=== PATIENT | male | born 1955 | race Caucasian/White ===

== ENCOUNTER → 2017-02-14 | Outpatient (CLI) | payer BC ==
--- NOTE | 2017-02-15 10:48 | RADONC ---
RADIATION ONCOLOGY CONSULTATION NOTE DATE: 02/14/2017 CHART NUMBER: [id number] DIAGNOSIS: Basal cell carcinoma. STAGE: I, T1N0M0. ECOG PERFORMANCE STATUS: 0 CONSULTATION NOTE: Mr. Pollock is a very pleasant 61-year-old white male with the diagnosis of a stage I, T1N0M0, basal cell carcinoma involving his left jaw who is presenting to us today for consideration of postoperative radiation therapy in attempt to achieve local control. HISTORY OF PRESENT ILLNESS: The patient has a long history of having a small lump present on the skin of his left lower jaw. He reported that when he would shaved he would cut this open. He was seen by Dr. Andres Sequeira who excised this area on 01/23/2017. Pathology revealed a basal cell carcinoma with extension to one peripheral margin. He has done well since surgery and is now presenting for consideration of postoperative radiation therapy. PAST MEDICAL HISTORY: The patient's past medical history is positive for arthritis, hepatitis, an OH in 2013, as well as a DVT. ALLERGIES: The patient is allergic to PENICILLIN. SOCIAL HISTORY: The patient smokes one pack of cigarettes per day for the last 45 years. He drinks alcohol socially. FAMILY HISTORY: The patient's family history is positive for a mother with throat cancer. REVIEW OF SYSTEMS: The patient's review of systems is noncontributory. He nausea, vomiting, fevers, chills, night sweats, diplopia, headaches, anxiety or depression, anorexia, weight loss, visual disturbances, chest pain, urinary or bowel difficulties, bone pain, or neurological problems. PHYSICAL EXAMINATION: The patient is a well-developed, well-nourished white male in no acute distress. HEENT: Exam is normocephalic, atraumatic. Extraocular movements are intact. The patient's skin over his jaws is in excellent condition with a well-healed surgical scar present. There is no nodularity, ulceration, or evidence of residual disease. There is no palpable preauricular, cervical, supraclavicular, infraclavicular, or axillary lymphadenopathy present. His lungs are clear to auscultation and percussion. ASSESSMENT: Mr. Pollock is seeing us for consideration of postoperative radiation therapy for his basal cell carcinoma. Clearly, the patient is a candidate for this treatment, and I have so informed him. I have discussed with the patient in detail the potential benefits as well as possible acute and chronic sequelae of external beam radiation therapy. We discussed logistics of treatment planning, simulation, and subsequent fractionated daily radiation treatments. In addition, I discussed with the patient the possibility of further excision. In light of the fact that is right over his face, he does not wish to undergo further scarring and has chosen radiation. Thank you for allowing us to participate in the care of this very pleasant gentleman. If I could be of any further assistance or provide you with any information, please feel free to contact me at anytime. cc: Andres Sequeira MD
== END ==
LOC: M ONCR 14:02
PROVIDERS: ATTEND Radiology Radiation Oncology
DX: C44.309 Unspecified malignant neoplasm of skin of other parts of face (principal)

== ENCOUNTER 2017-02-16 09:55 | Outpatient (RCR) | payer BC ==
--- NOTE | 2017-02-16 09:58 | RADONC ---
RADIATION ONCOLOGY SIMULATION NOTE DATE: 02/16/2017 CHART NUMBER: [id number] Mr. Pollock was taken to the linear accelerator today for a clinical setup of his left jaw electron field. Setup was accomplished without difficulty or discomfort. Radiation treatment planning is underway and radiation treatments will begin subsequently. The patient was immobilized. The immobilization device will be used throughout the course of treatment. I was physically present throughout the course of CT simulation. 1/2 cm of tissue equivalent bolus will be placed over the field and 61 MeV electron beam will be utilized.
--- NOTE | 2017-03-14 07:49 | RADONC ---
RADIATION ONCOLOGY PROGRESS NOTE DATE: 03/13/2017 CHART NUMBER: Mr. Pollock underwent his first fraction of radiation today to the skin of his jaw. Radiation was tolerated without difficulty or discomfort. The patient's review of systems is noncontributory. He denies nausea, vomiting, fevers, chills, night sweats, diplopia, headaches, anxiety or depression, anorexia, weight loss, visual disturbances, chest pain, urinary or bowel difficulties, bone pain, or neurological problems. PHYSICAL EXAMINATION: The patient's skin clearly showed no evidence of radiation change as he underwent his first fraction today. The remainder of his physical exam remained unchanged as well. Mr. Pollock tolerated his first fraction without difficulty and radiation will continue as scheduled.
== END 2017-03-03 ==
LOC: M ONCR 09:55
PROVIDERS: ATTEND Radiology Radiation Oncology
DX: C44.309 Unspecified malignant neoplasm of skin of other parts of face (principal)

== ENCOUNTER 2017-03-13 13:00 | Outpatient (RCR) | payer BC ==
--- NOTE | 2017-03-21 06:36 | RADONC ---
RADIATION ONCOLOGY PROGRESS NOTE DATE: 03/20/2017 CHART NUMBER: [id number] Mr. Pollock is presently at a dose of 1250 cGy to his left jaw and is tolerating his treatments quite well at this point with no complaints related to his radiation therapy. He is having no skin discomfort or other problems. REVIEW OF SYSTEMS: The patient's review of systems is noncontributory. He denies nausea, vomiting, fevers, chills, night sweats, diplopia, headaches, anxiety or depression, anorexia, weight loss, visual disturbances, chest pain, urinary or bowel difficulties, bone pain or neurological problems. PHYSICAL EXAMINATION: The patient's skin is in excellent condition with no evidence of radiation change present. There is no moist or dry desquamation. The remainder of his physical exam remains unchanged. Mr. Pollock is tolerating his treatments quite well and radiation will continue as scheduled.
--- NOTE | 2017-03-28 09:48 | RADONC ---
RADIATION ONCOLOGY PROGRESS NOTE DATE: 03/27/2017 CHART NUMBER: [id number] Mr. Pollock is presently at a dose of 2250 cGy to his left jaw and is tolerating treatments quite well at this point with no complaints related to his radiation therapy. He is having no skin pain or other problems. The patient's review of systems is noncontributory. He denies nausea, vomiting, fevers, chills, night sweats, diplopia, headaches, anxiety or depression, anorexia, weight loss, visual disturbances, chest pain, urinary or bowel difficulties, bone pain, or neurological problems. PHYSICAL EXAMINATION: The patient's skin is in excellent condition with no evidence of moist or dry desquamation. There is just some slight tanning present. The remainder of his physical exam remains unchanged. Mr. Pollock is tolerating treatments quite well and radiation will continue as scheduled.
--- NOTE | 2017-04-03 10:25 | RADONC ---
RADIATION ONCOLOGY PROGRESS NOTE: DATE: 04/03/2017 CHART NUMBER: [id number] Mr. Pollock is presently at a dose of 3500 cGy to his left jaw and is tolerating treatments quite well at this point with no complaints related to his radiation therapy. He is having no significant skin pain or other problems. REVIEW OF SYSTEMS: The patient's review of systems is noncontributory. Denies nausea, vomiting, fevers, chills, night sweats, diplopia, headaches, anxiety or depression, anorexia, weight loss, visual disturbances, chest pain, urinary or bowel difficulties, bone pain, or neurological problems. PHYSICAL EXAMINATION: The patient's skin is in excellent condition with no evidence of moist or dry desquamation. There is some radiation tanning present. The remainder of his physical exam remains unchanged. Mr. Pollock is tolerating treatments quite well and radiation will continue as scheduled.
== END 2017-04-03 ==
LOC: M ONCR 13:00
PROVIDERS: ATTEND Radiology Radiation Oncology
DX: C44.309 Unspecified malignant neoplasm of skin of other parts of face (principal)

== ENCOUNTER 2017-04-04 10:11 | Outpatient (RCR) | payer BC ==
--- NOTE | 2017-04-11 09:14 | RADONC ---
RADIATION ONCOLOGY PROGRESS NOTE DATE: 04/10/2017 CHART NUMBER: [id number] Mr. Pollock is presently at a dose of 4750 cGy to his left jaw and is tolerating treatments quite well at this point with no complaints related to his radiation therapy. He is having no skin discomfort or other problems. REVIEW OF SYSTEMS: The patient's review of systems is noncontributory. He denies nausea, vomiting, fevers, chills, night sweats, diplopia, headaches, anxiety or depression, anorexia, weight loss, visual disturbances, chest pain, urinary or bowel difficulties, bone pain or neurological problems. PHYSICAL EXAMINATION: The skin in the irradiated field shows some erythema and tanning present but overall is in excellent condition with no evidence of moist or dry desquamation. The remainder of his physical exam remains unchanged. Mr. Pollock is tolerating his treatments quite well and radiation is scheduled for completion tomorrow.
--- NOTE | 2017-04-12 08:44 | RADONC ---
RADIATION ONCOLOGY TREATMENT SUMMARY: DATE: 04/12/2017 CHART NUMBER: [id number] DIAGNOSIS: Basal cell carcinoma. STAGE: I, T1N0M0 ECOG PERFORMANCE STATUS: 0 Mr. Pollock is a very pleasant 61-year-old white male with the diagnosis of a stage I, T1N0M0 basal cell carcinoma involving his left jaw who presented to us for consideration of postoperative radiation therapy in attempt to achieve local control and cure. We treated the patient to the skin of his jaw for a total dose of 5000 cGy delivered in 20 fractions of 250 cGy each over 29 elapsed days from 03/13/2017 through 04/11/2017. The patient's left jaw was treated on a linear accelerator utilizing an 6 MV electron beam via an en face technique. The electron beam was prescribed to the 90% isodose line. 1/2 cm of tissue equivalent bolus was placed over the treatment field. Mr. Pollock tolerated his treatments quite well with no difficulties related to his radiation therapy. He was able to complete therapy as prescribed without interruption. I have scheduled the patient to see me again in 1 month for further followup. He will also continue to be followed by his other physicians as well. Thank you for allowing us to participate in the care of this very pleasant gentleman. If I could be of any further assistance or provide you with any information, please feel free to contact me anytime, As always with warm regards,
== END 2017-05-04 ==
LOC: M ONCR 10:11
PROVIDERS: ATTEND Radiology Radiation Oncology
DX: C44.309 Unspecified malignant neoplasm of skin of other parts of face (principal)

== ENCOUNTER → 2019-04-25 | Outpatient (CLI) | payer BC ==
[2019-04-25 07:51] LABS: HEMATOCRIT 48.7 % (42.0-52.0); MEAN CORPUSCULAR HEMOGLOBIN 33.9 pg (27.0-33.0); MEAN CORPUSCULAR HGB CONC 34.9 g/dl (32.0-36.5); PLATELET COUNT, AUTOMATED 252 10^3/uL (150-450); RED BLOOD COUNT 5.02 10^6/uL (4.30-6.10); WHITE BLOOD COUNT 10.7 10^3/uL (4.0-10.0)
[2019-04-25 08:27] LABS: ALBUMIN 3.6 GM/DL (3.2-5.2); ALT/SGPT 22 U/L (12-78); BILIRUBIN,TOTAL 0.7 MG/DL (0.2-1.0); BLOOD UREA NITROGEN 14 MG/DL (7-18); CALCIUM LEVEL 9.2 MG/DL (8.8-10.2); CARBON DIOXIDE LEVEL 27 MEQ/L (21-32); CHLORIDE LEVEL 108 MEQ/L (98-107); CHOLESTEROL LEVEL 156 MG/DL (<200); CHOLESTEROL RISK RATIO 3.391 (<5); CREATININE FOR GFR 1.08 MG/DL (0.70-1.30); GLOMERULAR FILTRATION RATE > 60.0 (>49); GLUCOSE, FASTING 90 MG/DL (70-100); HDL CHOLESTEROL 46 MG/DL (>40); LDL CHOLESTEROL 76 MG/DL (<100); NON-HDL-C 110 MG/DL; PROSTATIC SPECIFIC AG MONITOR 1.53 NG/ML (< 4.00); SODIUM LEVEL 142 MEQ/L (136-145); TOTAL PROTEIN 6.7 GM/DL (6.4-8.2); TRIGLYCERIDES LEVEL 169 MG/DL (<150)
[2019-04-25 08:56] LABS: HEMOGLOBIN A1c 5.9 %
--- NOTE | 2019-04-25 10:12 | REP ---
TWO-VIEW CHEST: REASON: History of COPD and hypertension. COMPARISON: Multiple, latest 12/31/2015. FINDINGS: The superior mediastinal structures are midline. The cardiac silhouette is unremarkable in size, shape, and position. The diaphragmatic surfaces of the lungs are regular, and the costophrenic angles are clear. The pulmonary barrientos are clear. The imaged osseous structures are intact. IMPRESSION: There is no acute cardiopulmonary disease. Electronically Signed by Elkin Grigsby DO 04/25/2019 10:55 A
[2019-04-25 12:19] LABS: TESTOSTERONE 197 NG/DL (241-827)
--- NOTE | 2019-04-26 09:12 | ECGEPIP ---
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
== END ==
LOC: M LAB 07:14
PROVIDERS: ATTEND Family Medicine
DX: I10 Essential (primary) hypertension (principal); J44.9 Chronic obstructive pulmonary disease, unspecified; E03.9 Hypothyroidism, unspecified

== ENCOUNTER → 2020-10-30 | Outpatient (CLI) | payer BC ==
[2020-10-30 08:36] LABS: HEMATOCRIT 48.9 % (42.0-52.0); HEMOGLOBIN 16.5 g/dl (13.5-17.5); MEAN CORPUSCULAR HEMOGLOBIN 33.7 pg (27.0-33.0); MEAN CORPUSCULAR HGB CONC 33.7 g/dl (32.0-36.5); MEAN CORPUSCULAR VOLUME 99.8 fl (80.0-96.0); PLATELET COUNT, AUTOMATED 261 10^3/uL (150-450); WHITE BLOOD COUNT 9.2 10^3/uL (4.0-10.0)
--- NOTE | 2020-10-30 08:54 | REP ---
INDICATION: HYPERTENSION/ PT HAS LABS, RAD, THEN EKG. COMPARISON: 04/25/2019, 12/31/2015 TECHNIQUE: Two views FINDINGS: The lungs are well inflated. There is a new zone of linear scar or atelectasis peripherally in the right mid lung field. There is no pleural effusion, lateral or apical pleural thickening, pulmonary nodule or parenchymal mass identified. There is no acute infiltrate. The heart is not enlarged there is no pericardial thickening or effusion. Hilar symmetric and normal. The aorta is normal for age. The airway is intact. There is no widening of the mediastinum. Bony thorax shows no compression deformity or focal lesion. There is no free air under the diaphragm. IMPRESSION: 1. Some minor linear scar or atelectasis periphery of the right mid lung zone, new from previous study. No acute infiltrate, effusion, pleural plaque, pulmonary nodule, cardiomegaly or edema. <Electronically signed by Don Rodríguez > 10/30/20 0818
[2020-10-30 09:17] LABS: ALBUMIN 3.6 GM/DL (3.2-5.2); ALT/SGPT 37 U/L (12-78); BILIRUBIN,TOTAL 0.6 MG/DL (0.2-1.0); BLOOD UREA NITROGEN 14 MG/DL (7-18); CARBON DIOXIDE LEVEL 29 MEQ/L (21-32); CHLORIDE LEVEL 106 MEQ/L (98-107); CHOLESTEROL LEVEL 179 MG/DL (<200); CHOLESTEROL RISK RATIO 3.808 (<5); GLOMERULAR FILTRATION RATE > 60.0 (>49); GLUCOSE, FASTING 87 MG/DL (70-100); HDL CHOLESTEROL 47 MG/DL (>40); LDL CHOLESTEROL 94 MG/DL (<100); NON-HDL-C 132 MG/DL; POTASSIUM SERUM 4.4 MEQ/L (3.5-5.1); PROSTATIC SPECIFIC AG MONITOR 2.06 NG/ML (< 4.00); SODIUM LEVEL 139 MEQ/L (136-145); TOTAL PROTEIN 6.7 GM/DL (6.4-8.2); TRIGLYCERIDES LEVEL 192 MG/DL (<150)
--- NOTE | 2020-10-31 08:50 | ECGEPIP ---
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
== END ==
LOC: M LAB 07:24
PROVIDERS: ATTEND Family Medicine
DX: R00.1 Bradycardia, unspecified (principal); I10 Essential (primary) hypertension; R53.83 Other fatigue; J44.9 Chronic obstructive pulmonary disease, unspecified

== ENCOUNTER → 2021-08-10 | Outpatient (CLI) | payer MEDICARE, BC ==
[2021-08-10 08:32] LABS: HEMATOCRIT 48.4 % (42.0-52.0); HEMOGLOBIN 16.8 g/dl (13.5-17.5); MEAN CORPUSCULAR HGB CONC 34.7 g/dl (32.0-36.5); MEAN CORPUSCULAR VOLUME 100.8 fl (80.0-96.0); PLATELET COUNT, AUTOMATED 257 10^3/uL (150-450); WHITE BLOOD COUNT 10.4 10^3/uL (4.0-10.0)
[2021-08-10 09:06] LABS: ALBUMIN 3.4 GM/DL (3.2-5.2); ALT/SGPT 23 U/L (12-78); BILIRUBIN,TOTAL 0.6 MG/DL (0.2-1.0); BLOOD UREA NITROGEN 13 MG/DL (7-18); CALCIUM LEVEL 9.3 MG/DL (8.8-10.2); CARBON DIOXIDE LEVEL 28 MEQ/L (21-32); CHLORIDE LEVEL 107 MEQ/L (98-107); CHOLESTEROL LEVEL 198 MG/DL (<200); CREATININE FOR GFR 1.09 MG/DL (0.70-1.30); GLOMERULAR FILTRATION RATE > 60.0 (>49); GLUCOSE, FASTING 91 MG/DL (70-100); HDL CHOLESTEROL 49 MG/DL (>40); HEMOGLOBIN A1c 5.1 %; LDL CHOLESTEROL 103 MG/DL (<100); NON-HDL-C 149 MG/DL; POTASSIUM SERUM 4.4 MEQ/L (3.5-5.1); PROSTATIC SPECIFIC AG MONITOR 2.46 NG/ML (< 4.00); SODIUM LEVEL 139 MEQ/L (136-145); TOTAL PROTEIN 7.2 GM/DL (6.4-8.2); TRIGLYCERIDES LEVEL 228 MG/DL (<150)
--- NOTE | 2021-08-10 09:46 | REP ---
INDICATION: COPD XR 1ST EKG 2ND LABS 3RD COMPARISON: 10/30/2020. TECHNIQUE: PA/Lateral FINDINGS: Lungs: Clear, no infiltrate. There are mild scattered fibrotic changes. Heart: Normal in size. Mediastinum: Mediastinal silhouette unremarkable. Pleural angles: Unremarkable.. Bones and soft tissues: There are mild degenerative changes of the spine without compression deformity. IMPRESSION: No acute pulmonary disease. <Electronically signed by Micah Kerr > 08/10/21 0989
[2021-08-10 10:06] LABS: TESTOSTERONE 302 NG/DL (241-827)
--- NOTE | 2021-08-10 18:24 | ECGEPIP ---
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
== END ==
LOC: M LAB 07:38
PROVIDERS: ATTEND Family Medicine
DX: J44.9 Chronic obstructive pulmonary disease, unspecified (principal); D64.9 Anemia, unspecified; E03.9 Hypothyroidism, unspecified; R53.83 Other fatigue; R97.20 Elevated prostate specific antigen [PSA]

== ENCOUNTER → 2022-03-22 | Outpatient (CLI) | payer MEDICARE ==
[2022-03-22 08:31] LABS: HEMATOCRIT 45.9 % (42.0-52.0); HEMOGLOBIN 16.2 g/dl (13.5-17.5); MEAN CORPUSCULAR HEMOGLOBIN 35.7 pg (27.0-33.0); MEAN CORPUSCULAR HGB CONC 35.3 g/dl (32.0-36.5); MEAN CORPUSCULAR VOLUME 101.1 fl (80.0-96.0); PLATELET COUNT, AUTOMATED 225 10^3/uL (150-450); RED BLOOD COUNT 4.54 10^6/uL (4.30-6.10)
[2022-03-22 09:07] LABS: ALBUMIN 3.3 GM/DL (3.2-5.2); ALT/SGPT 32 U/L (12-78); BILIRUBIN,TOTAL 0.5 MG/DL (0.2-1.0); BLOOD UREA NITROGEN 12 MG/DL (7-18); CARBON DIOXIDE LEVEL 25 MEQ/L (21-32); CHLORIDE LEVEL 111 MEQ/L (98-107); CHOLESTEROL LEVEL 209 MG/DL (<200); CHOLESTEROL RISK RATIO 4.354 (<5); CREATININE FOR GFR 1.07 MG/DL (0.70-1.30); GLOMERULAR FILTRATION RATE > 60.0 (>49); GLUCOSE, FASTING 94 MG/DL (70-100); HDL CHOLESTEROL 48 MG/DL (>40); LDL CHOLESTEROL 121 MG/DL (<100); NON-HDL-C 161 MG/DL; POTASSIUM SERUM 4.6 MEQ/L (3.5-5.1); PROSTATIC SPECIFIC AG MONITOR 2.06 NG/ML (< 4.00); SODIUM LEVEL 141 MEQ/L (136-145); TOTAL PROTEIN 6.6 GM/DL (6.4-8.2); TRIGLYCERIDES LEVEL 200 MG/DL (<150)
[2022-03-22 10:11] LABS: HEMOGLOBIN A1c 5.2 %
[2022-03-22 10:30] LABS: TOTAL 25(OH) VITAMIN D 18.3 NG/ML (30.0-100.0)
[2022-03-22 10:31] LABS: TESTOSTERONE 370 NG/DL (241-827)
== END ==
LOC: M LAB 08:01
PROVIDERS: ATTEND Family Medicine
DX: R53.83 Other fatigue (principal); I10 Essential (primary) hypertension; Z79.899 Other long term (current) drug therapy

== ENCOUNTER → 2022-07-05 | Outpatient (CLI) | payer MEDICARE | LOC: M RAD 07:15 | PROVIDERS: ATTEND Family Medicine | DX: J44.9 Chronic obstructive pulmonary disease, unspecified (principal) ==

== ENCOUNTER → 2022-07-22 | Outpatient (CLI) | payer MEDICARE | LOC: M RAD 07:51 | PROVIDERS: ATTEND Family Medicine | DX: J40 Bronchitis, not specified as acute or chronic (principal) ==

== ENCOUNTER → 2022-08-01 | Outpatient (CLI) | payer MEDICARE | LOC: M RAD 07:06 | PROVIDERS: ATTEND Family Medicine | DX: J18.9 Pneumonia, unspecified organism (principal) ==

== ENCOUNTER → 2022-12-01 | Outpatient (CLI) | payer MEDICARE, BC | LOC: M RAD 08:43 | PROVIDERS: ATTEND Family Medicine | DX: J44.9 Chronic obstructive pulmonary disease, unspecified (principal) ==

== ENCOUNTER → 2023-03-17 | Outpatient (CLI) | payer MEDICARE, BC ==
[2023-03-17 07:41] LABS: HEMATOCRIT 47.6 % (42.0-52.0); HEMOGLOBIN 16.5 g/dl (13.5-17.5); MEAN CORPUSCULAR HEMOGLOBIN 34.9 pg (27.0-33.0); MEAN CORPUSCULAR HGB CONC 34.7 g/dl (32.0-36.5); MEAN CORPUSCULAR VOLUME 100.6 fl (80.0-96.0); PLATELET COUNT, AUTOMATED 296 10^3/uL (150-450); RED BLOOD COUNT 4.73 10^6/uL (4.30-6.10); WHITE BLOOD COUNT 8.2 10^3/uL (4.0-10.0)
[2023-03-17 08:13] LABS: HEMOGLOBIN A1c 5.1 % (4.0-6.0)
[2023-03-17 08:14] LABS: PROSTATIC SPECIFIC AG MONITOR 1.65 NG/ML (< 4.00)
[2023-03-17 08:17] LABS: ALBUMIN 3.5 G/DL (3.2-5.2); ALKALINE PHOSPHATASE 70 U/L (46-116); ALT/SGPT 21 U/L (7.0-40); AST/SGOT < 8 U/L (<34); BILIRUBIN,TOTAL 0.6 MG/DL (0.3-1.2); BLOOD UREA NITROGEN 16 MG/DL (9-23); CARBON DIOXIDE LEVEL 29 MMOL/L (20-31); CHLORIDE LEVEL 109 MMOL/L (98-107); CHOLESTEROL LEVEL 189 MG/DL (<200); CHOLESTEROL RISK RATIO 4.55 (<5); CREATININE FOR GFR 1.13 MG/DL (0.70-1.30); GLOMERULAR FILTRATION RATE > 60.0 (>49); GLUCOSE, FASTING 93 MG/DL (74-106); HDL CHOLESTEROL 41.5 MG/DL (>40); LDL CHOLESTEROL 95.9 MG/DL (<100); NON-HDL-C 147.5 MG/DL; POTASSIUM SERUM 4.6 MMOL/L (3.5-5.1); SODIUM LEVEL 142 MMOL/L (136-145); THYROID STIMULATING HORMONE 2.688 uIU/ML (0.55-4.78); TOTAL PROTEIN 6.3 G/DL (5.7-8.2); TRIGLYCERIDES LEVEL 258 MG/DL (<150)
[2023-03-17 08:18] LABS: TESTOSTERONE 413 NG/DL (241-827)
== END ==
LOC: M RAD 06:42
PROVIDERS: ATTEND Family Medicine
DX: I10 Essential (primary) hypertension (principal); R53.83 Other fatigue; R97.20 Elevated prostate specific antigen [PSA]

== ENCOUNTER → 2024-01-16 | Outpatient (CLI) | payer MEDICARE, BC ==
[2024-01-16 08:17] LABS: HEMATOCRIT 49.9 % (42.0-52.0); HEMOGLOBIN 17.1 g/dl (13.5-17.5); MEAN CORPUSCULAR HEMOGLOBIN 34.1 pg (27.0-33.0); MEAN CORPUSCULAR HGB CONC 34.3 g/dl (32.0-36.5); MEAN CORPUSCULAR VOLUME 99.6 fl (80.0-96.0); PLATELET COUNT, AUTOMATED 256 10^3/uL (150-450); RED BLOOD COUNT 5.01 10^6/uL (4.30-6.10); WHITE BLOOD COUNT 7.7 10^3/uL (4.0-10.0)
[2024-01-16 08:41] LABS: PROSTATIC SPECIFIC AG MONITOR 2.06 NG/ML (< 4.00)
[2024-01-16 08:43] LABS: ALBUMIN 3.4 G/DL (3.2-5.2); ALKALINE PHOSPHATASE 77 U/L (46-116); ALT/SGPT 16 U/L (7.0-40); AST/SGOT 11 U/L (<34); BILIRUBIN,TOTAL 0.8 MG/DL (0.3-1.2); BLOOD UREA NITROGEN 14 MG/DL (9-23); CALCIUM LEVEL 9.5 MG/DL (8.3-10.6); CARBON DIOXIDE LEVEL 29 MMOL/L (20-31); CHLORIDE LEVEL 111 MMOL/L (98-107); CHOLESTEROL LEVEL 195 MG/DL (<200); CHOLESTEROL RISK RATIO 4.43 (<5); CREATININE FOR GFR 1.05 MG/DL (0.70-1.30); GLOMERULAR FILTRATION RATE > 60.0 (>49); GLUCOSE, FASTING 91 MG/DL (74-106); LDL CHOLESTEROL 111.6 MG/DL (<100); POTASSIUM SERUM 4.6 MMOL/L (3.5-5.1); SODIUM LEVEL 144 MMOL/L (136-145); TOTAL PROTEIN 6.4 G/DL (5.7-8.2); TRIGLYCERIDES LEVEL 197 MG/DL (<150)
[2024-01-16 08:45] LABS: TESTOSTERONE 254 NG/DL (241-827); THYROID STIMULATING HORMONE 3.275 uIU/ML (0.55-4.78)
== END ==
LOC: M LAB 06:59
PROVIDERS: ATTEND Family Medicine
DX: R53.83 Other fatigue (principal); I10 Essential (primary) hypertension; R97.20 Elevated prostate specific antigen [PSA]

== ENCOUNTER → 2024-05-21 | Outpatient (REF) | payer MEDICARE, BC | LOC: M SFHCDERM 18:04 | PROVIDERS: ATTEND Nurse Practitioner Family | DX: C44.222 Squamous cell carcinoma of skin of right ear and external auricular canal (principal); L82.1 Other seborrheic keratosis ==

== ENCOUNTER → 2024-08-13 | Outpatient (CLI) | payer MEDICARE, BC ==
[2024-08-13 08:29] LABS: HEMOGLOBIN A1c 5.2 % (4.0-6.0)
[2024-08-13 08:34] LABS: HEMATOCRIT 52.3 % (42.0-52.0); HEMOGLOBIN 17.9 g/dl (13.5-17.5); MEAN CORPUSCULAR HEMOGLOBIN 33.5 pg (27.0-33.0); MEAN CORPUSCULAR HGB CONC 34.2 g/dl (32.0-36.5); MEAN CORPUSCULAR VOLUME 97.8 fl (80.0-96.0); PLATELET COUNT, AUTOMATED 270 10^3/uL (150-450); RED BLOOD COUNT 5.35 10^6/uL (4.30-6.10); WHITE BLOOD COUNT 7.7 10^3/uL (4.0-10.0)
[2024-08-13 08:49] LABS: ALBUMIN 3.3 G/DL (3.2-5.2); ALKALINE PHOSPHATASE 70 U/L (40-129); ALT/SGPT 15 U/L (7.0-40); AST/SGOT 13 U/L (<34); BILIRUBIN,TOTAL 0.7 MG/DL (0.3-1.2); BLOOD UREA NITROGEN 17 MG/DL (9-23); CALCIUM LEVEL 9.5 MG/DL (8.3-10.6); CARBON DIOXIDE LEVEL 29 MMOL/L (20-31); CHLORIDE LEVEL 107 MMOL/L (98-107); CHOLESTEROL LEVEL 172 MG/DL (<200); CHOLESTEROL RISK RATIO 4.72 (<5); CREATININE FOR GFR 1.21 MG/DL (0.70-1.30); GLOMERULAR FILTRATION RATE > 60.0 (>42); GLUCOSE, FASTING 89 MG/DL (74-106); HDL CHOLESTEROL 36.4 MG/DL (>40); LDL CHOLESTEROL 108.8 MG/DL (<100); NON-HDL-C 135.6 MG/DL; POTASSIUM SERUM 4.6 MMOL/L (3.5-5.1); PROSTATIC SPECIFIC AG MONITOR 2.02 NG/ML (< 4.00); SODIUM LEVEL 140 MMOL/L (136-145); TOTAL PROTEIN 6.9 G/DL (5.7-8.2); TRIGLYCERIDES LEVEL 134 MG/DL (<150)
[2024-08-13 08:51] LABS: TESTOSTERONE 854 NG/DL (241-827); THYROID STIMULATING HORMONE 3.355 uIU/ML (0.55-4.78)
== END ==
LOC: M LAB 07:09
PROVIDERS: ATTEND Family Medicine
DX: R53.83 Other fatigue (principal); E78.00 Pure hypercholesterolemia, unspecified; R97.20 Elevated prostate specific antigen [PSA]

== ENCOUNTER → 2024-08-13 | Outpatient (CLI) | payer MEDICARE, BC | LOC: M LAB 07:02 | PROVIDERS: ATTEND Family Medicine | DX: R53.83 Other fatigue (principal) ==

== ENCOUNTER 2024-09-14 04:24 | Emergency (ER) | payer MEDICARE, BC ==
[~2024-09-14] VITALS: Ht 182.9 cm; Wt 83.2 kg
[2024-09-14 04:27] VITALS: BP 161/77; TEMP 97.2; O2SAT 96
== END 2024-09-14 07:15 | disposition left against medical advice (07) ==
LOC: M ED 04:24
DX: Z53.21 Procedure and treatment not carried out due to patient leaving prior to being seen by health care provider (principal)